=== PATIENT | female | born 1965 | race Caucasian/White ===

== ENCOUNTER 2020-01-15 07:15 | Outpatient (CLI) | payer BC, SELFPAY ==
--- NOTE | 2020-01-15 07:25 | MM_ITS ---
WS: [id number] BILATERAL SCREENING DIGITAL MAMMOGRAM WITH CAD HISTORY: SCREENING COMPARISON: 09/20/2017 and 10/31/2012 Bilateral CC and MLO views submitted. Computer aided detection analyzed. Breast composition: The breasts are almost entirely fatty. No suspicious masses, microcalcifications or architectural distortion. Benign calcifications in the anterior RIGHT breast. MM/[id number] IMPRESSION: BI-RADS: 2-Benign FOLLOW UP: 1 Year Follow-up
== END 2020-01-15 07:16 | disposition home or self-care (01) ==
LOC: RADSHAW 07:19
PROVIDERS: Family Provider Family Medicine; PCP Family Medicine; Visit Provider Family Medicine
DX: Z12.31 Encounter for screening mammogram for malignant neoplasm of breast (principal)
CPT/HCPCS: 77067

== ENCOUNTER 2021-03-04 08:11 | Outpatient (CLI) | payer BC, SELFPAY ==
--- NOTE | 2021-03-04 08:49 | MM_ITS ---
WS: [id number] BILATERAL DIGITAL SCREENING MAMMOGRAPHY WITH CAD CLINICAL INFORMATION: SCREENING HISTORY: Screening mammogram. No current complaints. COMPARISON: January 15, 2020 TECHNIQUE: Bilateral CC and MLO views. FINDINGS: Scattered fibroglandular densities bilaterally. No suspicious focal mass, asymmetry, calcifications, or architectural distortion. No evidence of malignancy. A few punctate and lucent centered calcificat ions. MM/[id number] IMPRESSION: BI-RADS: 2-Benign FOLLOW UP: 1 Year Follow-up Recommend return to annual screening mammography.
== END 2021-03-04 08:12 | disposition home or self-care (01) ==
PROVIDERS: PCP Family Medicine; Visit Provider Family Medicine
DX: Z12.31 Encounter for screening mammogram for malignant neoplasm of breast (principal)
CPT/HCPCS: 77067

== ENCOUNTER 2022-04-10 10:25 | Outpatient (CLI) | payer BC, SELFPAY ==
--- NOTE | 2022-04-10 10:31 | MM_ITS ---
WS: [id number] Bilateral screening 3D tomosynthesis digital mammogram, 04/10/2022 Clinical Data: SCREENING Comparison: 03/04/2021, 01/15/2020, 09/20/2017, 10/31/2012, 09/03/2011. Findings: The breast parenchymal pattern shows fat replacement. No spiculated masses or clustered calcification s are seen. There are no secondary signs of carcinoma. MM/[id number] Impression: 1. Negative bilateral mammogram unchanged. 2. Recommend annual screening mammograms. BIRADS: 1-Negative FOLLOW UP: 1 Year Follow-up The CAD decoration checker was used.
== END 2022-04-10 10:26 | disposition home or self-care (01) ==
PROVIDERS: PCP Family Medicine; Visit Provider Family Medicine
DX: Z12.31 Encounter for screening mammogram for malignant neoplasm of breast (principal)
CPT/HCPCS: 77063; 77067

== ENCOUNTER 2023-08-03 04:28 | Emergency (ER) | payer SELFPAY ==
[2023-08-03 04:38] VITALS: BP 164/98; PULSE 94; RESP 18; TEMP 36.7; O2SAT 98; BMI 35.5
[2023-08-03 04:44] VITALS: PULSE 91; O2SAT 98
[2023-08-03 05:06] LABS: Basophils # 0.1 10^3/uL (0.0-0.1); Basophils % 0.4 %; Eosinophils # 0.2 10^3/uL (0.0-0.8); Eosinophils % 1.9 %; Hematocrit 40.9 % (36-47); Lymphocytes # 2.1 10^3/uL (0.8-4.8); Lymphocytes % 17.2 %; Mean Corpuscular HGB Conc 32.8 g/dL (30-55); Mean Corpuscular Hemoglobin 29.8 pg (27-33); Mean Corpuscular Volume 91.1 fl (85-98); Mean Platelet Volume 8.9 fL (7.4-10.4); Monocytes # 0.6 10^3/uL (0.2-0.9); Neutrophils # 9.25 10^3/uL (1.8-7.7); Neutrophils % 75.1 %; Nucleated Red Blood Cells % 0 %; Platelet Count 432 10^3/cmm (157-399); Red Blood Count 4.49 10^6/uL (3.85-5.65); Red Cell Distribution Width 12.9 % (12.1-15.1); White Blood Count 12.32 10^3/uL (3.29-11.43)
--- NOTE | 2023-08-03 05:06 | CTR_ITS ---
PROCEDURE INFORMATION: Exam: CT Abdomen And Pelvis Without Contrast Exam date and time: 08/03/2023 5:13 AM Age: 57 years old Clinical indication: Abdominal pain; Prior surgery; Surgery date: 6+ months; Surgery type: 2 dnc in past; Patient HX: Left flank pain, patient says she has been going to the chiropractor for low back pain but its been over a month since her last visit. TECHNIQUE: Imaging protocol: Computed tomography of the abdomen and pelvis without contrast. Radiation optimization: All CT scans at this facility use at least one of these dose optimization techniques: automated exposure control; mA and/or kV adjustment per patient size (includes targeted exams where dose is matched to clinical indication); or iterative reconstruction. REPORTING DATA: Count of CT and Cardiac NM exams in prior 12 months: This patient has received 0 known CTs and 0 known cardiac nuclear medicine studies in the 12 months prior to the current study. COMPARISON: US abdomen limited [id number] 11/04/2017 9:31 AM RADIATION DOSE METRICS: Total DLP (mGy-cm): 1117.46 FINDINGS: Liver: Normal. No mass. Gallbladder and bile ducts: Normal. No calcified stones. No ductal dilation. Pancreas: Normal. No ductal dilation. Spleen: Normal. No splenomegaly. Adrenal glands: Normal. No mass. Kidneys and ureters: Normal. No hydronephrosis. Stomach and bowel: Unremarkable. No obstruction. No mucosal thickening. Appendix: No evidence of appendicitis. Intraperitoneal space: Unremarkable. No free air. No significant fluid collection. Vasculature: Unremarkable. No abdominal aortic aneurysm. Lymph nodes: Unremarkable. No enlarged lymph nodes. Urinary bladder: Unremarkable as visualized. Reproductive: Bilateral ovarian cyst, 6 cm on the right, 5 cm on the left. Bones/joints: Unremarkable. No acute fracture. Soft tissues: Unremarkable. CT/CT kidney stone [id number] IMPRESSION: Bilateral ovarian cysts. No acute subdiaphragmatic pathology.
[2023-08-03 05:11] VITALS: BP 147/85; PULSE 74; O2SAT 95
[2023-08-03 05:17] LABS: Urine Appearance Clear (CLEAR); Urine Color Yellow (Yellow); pH Urine 6 (5-7)
[2023-08-03 05:18] LABS: Add Urine Culture? No; Bacteria Urine TRACE /hpf; Bilirubin Urine Neg (Negative); Blood Urine Neg (Negative); Glucose Urine UA Norm (Normal); Ketones Urine Negative (Negative); Leukocyte Esterase Urine Negative (Negative); Nitrate Urine Negative (Negative); Protein Urine Neg (Negative); Squamous Epithelial Cell Urine 0-4 /hpf (0-5); Urobilinogen Urine Neg (Negative)
[2023-08-03] MEDS: sodium chloride 0.9% 1,000 ML 999 ML IV (05:22)
[2023-08-03] MEDS: ondansetron 2 mg/ML SDV 2 mL 4 MG IVP (05:22)
[2023-08-03] MEDS: ketorolac 30 mg/mL INJ IVP (05:23)
[2023-08-03 05:29] LABS: Alanine Aminotransferase 41 U/L (0-33); Albumin Level 4.4 g/dL (3.5-5.2); Alkaline Phosphatase 199 U/L (35-105); Anion Gap 16.6 (5-19); Aspartate Amino Transferase 29 U/L (0-32); Blood Urea Nitrogen 13 mg/dL (6-20); Calcium 9.8 mg/dL (8.5-10.5); Carbon Dioxide 25 mmol/L (22-29); Chloride 100 mmol/L (98-107); Globulin 3.6 g/dL (1.3-4.6); Glomerular Filtration Rate 86.6 mL/min (90-130); Glucose 144 mg/dL (65-115); Osmolality Calculated 287 mOsm/kg (285-295); Potassium 4.6 mmol/L (3.5-5.1); Sodium 137 mmol/L (136-145); Total Bilirubin 0.8 mg/dL (0.15-1.2)
--- NOTE | 2023-08-03 05:37 | ED_ITS ---
Documented by User: Monster Zamarripa MD 08/25/23 07:53 HPI - Female Genitourinary 2 General: Chief complaint: Urogenital-Female Stated complaint: mid right back pain, chills, ichy throat Time Seen by Provider: 08/03/23 04:43 History of Present Illness: 57-year-old female presents emergency de partment with complaints of low back pain and an intermittent irritated throat. She states that yesterday she was outside in the cold bends over cleaning her truck for a extended period of time and today she noted to have 4 out of 10 aching low back pain. She states that nothing seems to make her pain better nothing seems to make it worse. 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 She denies numbness or tingling no injury or trauma. She denies urinary retention or incontinence. Review of Systems 2 General: Reports: 10 or more systems reviewed and unremarkable except in HPI and below Musc: Reports: back pain Physical Exam 2 Narrative: EXAM NARRATIVE: Constitutional: the patient appears well nourished and with normal development. Vital signs reviewed as documented. HENMT: Normocephalic, atraumatic. Extermal ears with normal appearance without drainage. Nose without drainage, normal appearance. Mucus membranes moist. Neck is supple, No jugular venous distension, trachea is midline, no appreciable carotid bruits. No lymphadenopathy. No meningeal signs. Flexion, extension and lateral rotation is without pain. Eyes: Pupils are equal, round, reactive to light and accommodation. No scleral icterus. Extra-ocular movement are intact. Thorax is symmetrical and with equal rise and fall with respirations. Resp: Lungs are clear to auscultation. No wheezes, rales, crackles or ronchi at present. Cardio: Regular rate and rhythm. Positive S1, S2. No appreciable murmurs, rubs or gallops. GI: Abdominal exam reveals normal bowel sounds to all quadrants. No organomegaly. No obvious palpable masses noted. No hepatomegally appreciated. Soft, nontender to palpation. Extremity: Extremities are non-edematous and both femoral and pedal pulses are 2+ and equal bilaterally. Moves all extremities well, sensation in all extremities. Neuro: Alert and oriented x4, person, place, time and situation. Cranial nerves II through XII are grossly intact, there is no focal neurological deficits that I can appreciate at present. Motor strength in the upper and lower extremities are equal and bilateral 5/5. Psych: Cooperative, calm, normal thought process, appropriate judgment. Skin: No lesions, rashes. No gross abnormalities noted. Back: Symmetrical, no obvious deformity, No CVA tenderness Course 2 Vital Signs: Vital signs: Vital Signs Temperature 98.0 F 08/03/23 04:38 Pulse Rate 64 08/03/23 07:18 Respiratory Rate 15 08/03/23 07:00 Blood Pressure 163/76 08/03/23 07:18 Pulse Oximetry 99 08/03/23 07:18 Oxygen Delivery Me thod Room Air 08/03/23 07:00 MDM - Female Medical Decision Making Physical exam completed and documented, I will provide IV pain medication as well as IV fluid rehydration and antinausea medication. I will obtain CBC, CMP urinalysis and a CT scan to rule out renal pathology to include renal calculi or renal cyst pyelonephritis or urinary tract infection. Medical Records I reviewed the patient's medical records. Lab Data I reviewed the patient's lab results. 08/03/23 04:59 08/03/23 04:59 Radiology Impressions Abdomen/Pelvis CT 08/03/23 05:06 IMPRESSION: Bilateral ovarian cysts. No acute subdiaphragmatic pathology. Laboratory Results WBC 12.32 10^3/uL (3.29-11.43) H 08/03/23 04:59 RBC 4.49 10^6/uL (3.85-5.65) 08/03/23 04:59 Hgb 13.40 g/dL (11.27-16.99) 08/03/23 04:59 Hct 40.9 % (36-47) 08/03/23 04:59 MCV 91.1 fl (85-98) 08/03/23 04:59 MCH 29.8 pg (27-33) 08/03/23 04:59 MCHC 32.8 g/dL (30-55) 08/03/23 04:59 RDW 12.9 % (12.1-15.1) 08/03/23 04:59 Plt Count 432 10^3/cmm (157-399) H 08/03/23 04:59 MPV 8.9 fL (7.4-10.4) 08/03/23 04:59 Neut % (Auto) 75.1 % 08/03/23 04:59 Lymph % (Auto) 17.2 % 08/03/23 04:59 [place] % (Auto) 5.0 % 08/03/23 04:59 Eos % (Auto) 1.9 % 08/03/23 04:59 Baso % (Auto) 0.4 % 08/03/23 04:59 Neut # (Auto) 9.25 10^3/uL (1.8-7.7) H 08/03/23 04:59 Lymph # (Auto) 2.1 10^3/uL (0.8-4.8) 08/03/23 04:59 [place]enton # (Auto) 0.6 10^3/uL (0.2-0.9) 08/03/23 04:59 Eos # (Auto) 0.2 10^3/uL (0.0-0.8) 08/03/23 04:59 Baso # (Auto) 0.1 10^3/uL (0.0-0.1) 08/03/23 04:59 Nucleated RBC % (auto) 0 % 08/03/23 04:59 Nucleated RBCs # 0.0 /100WBC 08/03/23 04:59 Sodium 137 mmol/L (136-145) 08/03/23 04:59 Potassium 4.6 mmol/L (3.5-5.1) 08/03/23 04:59 Chloride 100 mmol/L (98-107) 08/03/23 04:59 Carbon Dioxide 25 mmol/L (22-29) 08/03/23 04:59 Anion Gap 16.6 (5-19) 08/03/23 04:59 BUN 13 mg/dL (6-20) 08/03/23 04:59 Creatinine 0.7 mg/dL (0.5-0.9) 08/03/23 04:59 GFR Calculation 86.6 mL/min (90-130) L 08/03/23 04:59 Glucose 144 mg/dL (65-115) H 08/03/23 04:59 Calculated Osmolality 287 mOsm/kg (285-295) 08/03/23 04:59 Calcium 9.8 mg/dL (8.5-10.5) 08/03/23 04:59 Total Bilirubin 0.8 mg/dL (0.15-1.2) 08/03/23 04:59 AST 29 U/L (0-32) 08/03/23 04:59 ALT 41 U/L (0-33) H 08/03/23 04:59 Alkaline Phosphatase 199 U/L (35-105) H 08/03/23 04:59 Total Protein 8.0 g/dL (6.6-8.7) 08/03/23 04:59 Albumin 4.4 g/dL (3.5-5.2) 08/03/23 04:59 Globulin 3.6 g/dL (1.3-4.6) 08/03/23 04:59 Urine Color Yellow (Yellow) 08/03/23 04:59 Urine Appearance Clear (CLEAR) 08/03/23 04:59 Urine pH 6 (5-7) 08/03/23 04:59 Ur Specific [place] 1.010 (1.005-1.030) 08/03/23 04:59 Urine Protein Neg (Negative) 08/03/23 04:59 Urine Glucose (UA) Norm (Normal) 08/03/23 04:59 Urine Ketones Negative (Negative) 08/03/23 04:59 Urine Blood Neg (Negative) 08/03/23 04:59 Urine Nitrate Negative (Negative) 08/03/23 04:59 Urine Bilirubin Neg (Negative) 08/03/23 04:59 Urine Urobilinogen Neg mg/dL (Negative) 08/03/23 04:59 Ur Leukocyte Esterase Negative (Negative) 08/03/23 04:59 Urine RBC None /hpf (0-2) 08/03/23 04:59 Urine WBC None /hpf (0-5) 08/03/23 04:59 Ur Squamous Epith Cells 0-4 /hpf (0-5) H 08/03/23 04:59 Amorphous Sediment Not Reportable 08/03/23 04:59 Urine Bacteria Trace /hpf (NONE) 08/03/23 04:59 Discharge Plan Discharge Patient Disposition: Home Clinical Impression: Lumbar back pain Condition: Stable Prescriptions: New tizanidine 4 mg tablet 4 mg PO Q6H PRN (Reason: muscle spasticity) Qty: 20 0RF Rx Instructions: do not exceed 3 doses per 24 hrs prednisone 20 mg tablet 20 mg PO TID Qty: 15 0RF Rx Instructions: 1 p.o. 3 times daily x3 days, 1 p.o. twice daily x2 days, 1 p.o. daily x2 days Discharge Orders: Discharge ED (Routine); Ordered 08/03/23 Ordered By: Aries Carranza Discharge Diet: Usual diet Discharge Activity: Increase activity as tolerated Patient Instructions: Acute Low Back Pain (ED), Opioid Safety, Pain Management Activity Restrictions/Additional Instructions: Thank you for choosing [facility] for your healthcare needs today. Please realize this is an emergency room and that we are providing you with a medical screening exam and this may not be complete and all inclusive of all the testing and or work up that you may need to determine your ailment or severity of your illness. It is very important that you follow up as instructed or that you return to the Emergency Department should you have concerns or if your condition changes or worsens in any way. Follow-up with your primary care doctor if not improving. Sign Out Sign Out Data: Patient Sign Out occurred on 08/03/23 at 06:03. Patient's care was discussed, and care was transferred from Monster Zamarripa MD to Aries Carranza DO. Coding Level of Care Code ED Plumbing Designer for Chg Fwd Documented by User: Aries Carranza DO 08/03/23 06:55 HPI - Female Genitourinary 2 General: Chief complaint: Urogenital-Female Stated complaint: mid right back pain, chills, ichy throat Time Seen by Provider: 08/03/23 04:43 Course 2 Vital Signs: Vital signs: Vital Signs Temperature 98.0 F 08/03/23 04:38 Pulse Rate 64 08/03/23 07:18 Respiratory Rate 15 08/03/23 07:00 Blood Pressure 163/76 08/03/23 07:18 Pulse Oximetry 99 08/03/23 07:18 Oxygen Delivery Me thod Room Air 12/19/23 07:00 MDM - Female Medical Decision Making Physical exam completed and documented, I will provide IV pain medication as well as IV fluid rehydration and antinausea medication. I will obtain CBC, CMP urinalysis and a CT scan to rule out renal pathology to include renal calculi or renal cyst pyelonephritis or urinary tract infection. Care assumed at change of shift. Chart reviewed labs reviewed. Symptoms precipitated after some lifting bending. She has no red flag symptoms. Slight elevation of alk phos but no symptoms consistent with biliary colic at this time. Patient has musculoskeletal low back pain CT was unremarkable. She is improved with medications Dr. Zamarripa was given. She is given 10 mg of dexamethasone and will discharge home on prednisone taper tizanidine diclofenac for improving follow-up with primary care they can refer to PT for further evaluate if is appropriate. Lab Data 08/03/23 04:59 08/03/23 04:59 Radiology Impressions Abdomen/Pelvis CT 08/03/23 05:06 IMPRESSION: Bilateral ovarian cysts. No acute subdiaphragmatic pathology. Laboratory Results WBC 12.32 10^3/uL (3.29-11.43) H 08/03/23 04:59 RBC 4.49 10^6/uL (3.85-5.65) 08/03/23 04:59 Hgb 13.40 g/dL (11.27-16.99) 08/03/23 04:59 Hct 40.9 % (36-47) 08/03/23 04:59 MCV 91.1 fl (85-98) 08/03/23 04:59 MCH 29.8 pg (27-33) 08/03/23 04:59 MCHC 32.8 g/dL (30-55) 08/03/23 04:59 RDW 12.9 % (12.1-15.1) 08/03/23 04:59 Plt Count 432 10^3/cmm (157-399) H 08/03/23 04:59 MPV 8.9 fL (7.4-10.4) 08/03/23 04:59 Neut % (Auto) 75.1 % 08/03/23 04:59 Lymph % (Auto) 17.2 % 08/03/23 04:59 Benton % (Auto) 5.0 % 08/03/23 04:59 Eos % (Auto) 1.9 % 08/03/23 04:59 Baso % (Auto) 0.4 % 08/03/23 04:59 Neut # (Auto) 9.25 10^3/uL (1.8-7.7) H 08/03/23 04:59 Lymph # (Auto) 2.1 10^3/uL (0.8-4.8) 08/03/23 04:59 Benton # (Auto) 0.6 10^3/uL (0.2-0.9) 08/03/23 04:59 Eos # (Auto) 0.2 10^3/uL (0.0-0.8) 08/03/23 04:59 Baso # (Auto) 0.1 10^3/uL (0.0-0.1) 08/03/23 04:59 Nucleated RBC % (auto) 0 % 08/03/23 04:59 Nucleated RBCs # 0.0 /100WBC 08/03/23 04:59 Sodium 137 mmol/L (136-145) 08/03/23 04:59 Potassium 4.6 mmol/L (3.5-5.1) 08/03/23 04:59 Chloride 100 mmol/L (98-107) 08/03/23 04:59 Carbon Dioxide 25 mmol/L (22-29) 08/03/23 04:59 Anion Gap 16.6 (5-19) 08/03/23 04:59 BUN 13 mg/dL (6-20) 08/03/23 04:59 Creatinine 0.7 mg/dL (0.5-0.9) 08/03/23 04:59 GFR Calculation 86.6 mL/min (90-130) L 08/03/23 04:59 Glucose 144 mg/dL (65-115) H 08/03/23 04:59 Calculated Osmolality 287 mOsm/kg (285-295) 08/03/23 04:59 Calcium 9.8 mg/dL (8.5-10.5) 08/03/23 04:59 Total Bilirubin 0.8 mg/dL (0.15-1.2) 08/03/23 04:59 AST 29 U/L (0-32) 08/03/23 04:59 ALT 41 U/L (0-33) H 08/03/23 04:59 Alkaline Phosphatase 199 U/L (35-105) H 08/03/23 04:59 Total Protein 8.0 g/dL (6.6-8.7) 08/03/23 04:59 Albumin 4.4 g/dL (3.5-5.2) 08/03/23 04:59 Globulin 3.6 g/dL (1.3-4.6) 08/03/23 04:59 Urine Color Yellow (Yellow) 08/03/23 04:59 Urine Appearance Clear (CLEAR) 08/03/23 04:59 Urine pH 6 (5-7) 08/03/23 04:59 Ur Specific [place] 1.010 (1.005-1.030) 08/03/23 04:59 Urine Protein Neg (Negative) 08/03/23 04:59 Urine Glucose (UA) Norm (Normal) 08/03/23 04:59 Urine Ketones Negative (Negative) 08/03/23 04:59 Urine Blood Neg (Negative) 08/03/23 04:59 Urine Nitrate Negative (Negative) 08/03/23 04:59 Urine Bilirubin Neg (Negative) 08/03/23 04:59 Urine Urobilinogen Neg mg/dL (Negative) 08/03/23 04:59 Ur Leukocyte Esterase Negative (Negative) 08/03/23 04:59 Urine RBC None /hpf (0-2) 08/03/23 04:59 Urine WBC None /hpf (0-5) 08/03/23 04:59 Ur Squamous Epith Cells 0-4 /hpf (0-5) H 08/03/23 04:59 Amorphous Sediment Not Reportable 08/03/23 04:59 Urine Bacteria Trace /hpf (NONE) 08/03/23 04:59 All radiology interpretation(s) finalized by discharge Discharge Plan Discharge Patient Disposition: Home Clinical Impression: Lumbar back pain Condition: Stable Prescriptions: New tizanidine 4 mg tablet 4 mg PO Q6H PRN (Reason: muscle spasticity) Qty: 20 0RF Rx Instructions: do not exceed 3 doses per 24 hrs prednisone 20 mg tablet 20 mg PO TID Qty: 15 0RF Rx Instructions: 1 p.o. 3 times daily x3 days, 1 p.o. twice daily x2 days, 1 p.o. daily x2 days Discharge Orders: Discharge ED (Routine); Ordered 08/03/23 Ordered By: Aries Carranza Discharge Diet: Usual diet Discharge Activity: Increase activity as tolerated Patient Instructions: Acute Low Back Pain (ED), Opioid Safety, Pain Management Activity Restrictions/Additional Instructions: Thank you for choosing [facility] for your healthcare needs today. Please realize this is an emergency room and that we are providing you with a medical screening exam and this may not be complete and all inclusive of all the testing and or work up that you may need to determine your ailment or severity of your illness. It is very important that you follow up as instructed or that you return to the Emergency Department should you have concerns or if your condition changes or worsens in any way. Follow-up with your primary care doctor if not improving. Sign Out Sign Out Data: Patient Sign Out occurred on 08/03/23 at 06:03. Patient's care was discussed, and care was transferred from Monster Zamarripa MD to Aries Carranza DO. Coding Level of Care Code ED Plumbing Designer for Dulce [facility] Luque
[2023-08-03 06:40] VITALS: BP 141/82; PULSE 71; RESP 17; O2SAT 98
[2023-08-03 07:00] VITALS: BP 133/89; PULSE 66; RESP 15; O2SAT 98
[2023-08-03] MEDS: dexamethasone 10 mg/mL INJ IM (07:05)
[2023-08-03 07:18] VITALS: BP 163/76; PULSE 64; O2SAT 99
== END 2023-08-03 07:20 | disposition home or self-care (01) ==
PROVIDERS: Internal Medicine; Emergency Provider Family Medicine
DX: M54.50 Low back pain, unspecified (principal)
CPT/HCPCS: 74176; 80053; 81001; 85025; 96361; 96372; 96374; 96375; 99285; J1100; J1885; J2405; J7030

== ENCOUNTER 2023-12-09 07:43 | Outpatient (CLI) | payer OTHER, SELFPAY ==
--- NOTE | 2023-12-09 07:49 | MM_ITS ---
WS: [id number] BILATERAL SCREENING DIGITAL TOMOSYNTHESIS MAMMOGRAM WITH CAD HISTORY: SCREENING COMPARISON: 04/10/2022, 03/04/2021 Bilateral CC and MLO views with tomosynthesis and synthetic mammography submitted. Computer aided det ection analyzed. Breast composition: There are scattered areas of fibroglandular density. No suspicious masses, microc alcifications or architectural distortion. Scattered calcifications. IMPRESSION: MM/[place] [id number] BI-RADS: 2-Benign FOLLOW UP: 1 Year Follow-up
== END 2023-12-09 07:44 | disposition home or self-care (01) ==
LOC: RAD 07:43
PROVIDERS: PCP Family Medicine; Visit Provider Family Medicine
DX: Z12.31 Encounter for screening mammogram for malignant neoplasm of breast (principal)
CPT/HCPCS: 77063; 77067

== ENCOUNTER 2024-12-11 07:48 | Outpatient (CLI) | payer OTHER, SELFPAY ==
--- NOTE | 2024-12-11 07:56 | MM_ITS ---
WS: [id number] BILATERAL SCREENING DIGITAL TOMOSYNTHESIS MAMMOGRAM WITH CAD HISTORY: SCREENING COMPARISON: 12/09/2023, 04/10/2022 Bilateral CC and MLO views with tomosynthesis and synthetic mammography submitted. Computer aided detection analyzed. Breast composition: The breasts are almost entirely fatty. No suspicious masses, microcalcifications or architectural distortion. Benign round calcifications in each breast, greater on the RIGHT. MM/MM scr BI tomosynthesis [id number] IMPRESSION: BI-RADS: 2 - Benign. FOLLOW UP: 1 Year Follow-up
== END 2024-12-11 07:49 | disposition home or self-care (01) ==
PROVIDERS: PCP Physician Assistant; Visit Provider Physician Assistant
DX: Z12.31 Encounter for screening mammogram for malignant neoplasm of breast (principal); R92.313 Mammographic fatty tissue density, bilateral breasts; R92.1 Mammographic calcification found on diagnostic imaging of breast
CPT/HCPCS: 77063; 77067